=== PATIENT | female | born 1970 | race Caucasian/White ===

== ENCOUNTER 2019-05-13 08:45 | Emergency (ER) | payer MEDICAID ==
[~2019-05-13] VITALS: Ht 162.6 cm; Wt 93.6 kg
[2019-05-13 08:53] VITALS: Ht 162.6 cm; Wt 93.6 kg
[2019-05-13 09:59] LABS: BASOPHIL % 0.5 % (0-2); PLATELET COUNT 259 x10^3mcL (130-400)
[2019-05-13 10:01] LABS: RED CELL DISTRIBUTION WIDTH 14.9 % (11.5-14.5)
[2019-05-13 10:49] LABS: CARBON DIOXIDE 25.8 mmol/L (21-32); CHLORIDE SERUM 105 mmol/L (98-107); GLUCOSE SERUM 98 mg/dL (74-106); SODIUM SERUM 139 mmol/L (136-145)
[2019-05-13 10:50] LABS: ALBUMIN 3.5 g/dL (3.4-5.0); ALKALINE PHOSPHATASE 54 U/L (46-116); ALT/SGPT 20 U/L (14-59); AST/SGOT 12 U/L (15-37); BILIRUBIN TOTAL 0.3 mg/dL (0.20-1.00); CALCIUM 8.5 mg/dL (8.5-10.1); CREATININE SERUM 0.7 mg/dL (0.6-1.0); GFR1 > 60 mL/min; TOTAL PROTEIN, SERUM 6.9 g/dL (6.4-8.2)
[2019-05-13 11:31] VITALS: BP 157/67
== END 2019-05-13 11:31 | disposition home or self-care (01) ==
LOC: ED 08:45
PROVIDERS: Emergency Medicine
DX: R07.89 Other chest pain (principal); M54.6 Pain in thoracic spine; I10 Essential (primary) hypertension; E03.9 Hypothyroidism, unspecified
CPT/HCPCS: 36415; 85378; J1885; Q0092

== ENCOUNTER 2020-04-03 16:26 | Emergency (ER) | payer MEDICAID ==
[~2020-04-03] VITALS: Ht 162.6 cm; Wt 90.3 kg
[2020-04-03 16:34] VITALS: Ht 162.6 cm; Wt 90.3 kg
[2020-04-03 17:01] VITALS: BP 1/73
== END 2020-04-03 17:01 | disposition home or self-care (01) ==
LOC: ED 16:26
DX: G51.0 Bell's palsy (principal); I10 Essential (primary) hypertension; E03.9 Hypothyroidism, unspecified